=== PATIENT | male | born 1990 | race Caucasian/White ===

== ENCOUNTER 2017-03-10 16:17 | Emergency (ER) | payer MEDICAID ==
[~2017-03-10] VITALS: Ht 170.2 cm; Wt 90.7 kg
[~2017-03-10 16:17] MED LIST: CLIN1CAP4 PO; HYDR-4683 PO; PAR20T PO; SULF-169 PO; [UNRECOGNIZED DRUG - CODE] PO
[2017-03-10 16:25] VITALS: BP 129/78
[2017-03-10] MEDS ORDERED: KETOROLAC TROMETH 30 MG/ML 1ML VIAL IV ONE (17:15)
[2017-03-10] MEDS ORDERED: SODIUM CHLORIDE 0.9% 1,000 ML IV ONE ×2 (17:15→19:30)
[2017-03-10 17:50] LABS: Urine RBC None Seen /hpf (0 - 3)
[2017-03-10 18:07] LABS: Urine Bilirubin Negative (Negative); Urine Blood Negative /uL (Negative); Urine Color Colorless (Yellow); Urine Glucose Normal (Normal); Urine Ketone Negative (Negative); Urine Mucus FEW (None Seen); Urine Nitrite Negative (Negative); Urine Urobilinogen Normal (Negative)
[2017-03-10 18:50] LABS: Basophils # (auto) 0 uL; Basophils % (auto) 0.4 % (0.0-2.0); Eosinophils # (auto) 0 uL; Hematocrit 45.2 % (41.0-53.0); Hemoglobin 14.7 g/dL (13.5-17.5); Lymphocytes % (auto) 19.9 % (10.0-50.0); Mean Corpuscular Hemoglobin 27.1 pg (28.0-32.0); Mean Corpuscular Hgb Conc. 32.5 g/dL (32.0-36.0); Mean Corpuscular Volume 83.5 fL (80.0-100.0); Mean Platelet Volume 8.9 fL (6.9-10.8); Monocytes # (auto) 0.4 uL; Monocytes % (auto) 4.1 % (0.0-12.0); Neutrophils # (auto) 7.7 uL; Neutrophils % (auto) 75.6 % (37.0-80.0); Nucleated Red Blood Cells % 0.1 %; Platelet Count (auto) 295 10^3/uL (140-450); Red Cell Distribution Width 13.5 % (11.8-14.3); White Blood Cell 10.2 10^3/uL (4.4-10.8)
[2017-03-10 18:55] LABS: BUN/Creatinine Ratio 14.1; Calcium 8.6 mg/dL (8.5-10.1); Magnesium 2.3 mg/dL (1.6-2.6); Potassium 5.4 mmol/L (3.5-5.1)
[2017-03-10 18:58] LABS: Acetaminophen < 2.0 ug/mL (10-30); Bilirubin, Total 0.2 mg/dL (0.2-1.0); Salicylate < 1.7 mg/dL (2.8-20.0); Total Protein 7.8 g/dL (6.4-8.2)
[2017-03-10] MEDS ORDERED: NEOMYCIN-BACITRACIN-POLYM UNITDOSE PKG TOP OINT TOP ONE (19:15)
[2017-03-10] MEDS ORDERED: ETOMIDATE (2MG/ML) 20ML VIAL IV ONE (19:30)
[2017-03-10] MEDS ORDERED: LORazepam 2MG/ML-1ML VIAL IV ONE (19:45)
== END 2017-03-10 20:17 ==
LOC: EDUNIT# 16:17 → ER 16:25
DX: S83.015A Lateral dislocation of left patella, initial encounter (principal); S01.81XA Laceration without foreign body of other part of head, initial encounter; I10 Essential (primary) hypertension; F17.210 Nicotine dependence, cigarettes, uncomplicated; F12.10 Cannabis abuse, uncomplicated; F10.10 Alcohol abuse, uncomplicated; Y08.89XA Assault by other specified means, initial encounter; Y99.8 Other external cause status; Y92.098 Other place in other non-institutional residence as the place of occurrence of the external cause; Y93.89 Activity, other specified
CPT/HCPCS: 12013; 27560; 36415; 70450; 73560; 73562; 80053; 80307; 80320; 80329; 81001; 83735; 85025; 96361; 96374; 96375; 99285; J1885; J2060; J7030; 12002